=== PATIENT | male | born 2000 | race Caucasian/White ===

== ENCOUNTER 2021-07-21 19:25 | Emergency (ER) | payer OTHER, SELFPAY ==
--- NOTE | ~2021-07-21 | CT_ITS ---
EXAMINATION: CT brain wo con INDICATION: Head injury COMPARISON: None TECHNIQUE: Standard unenhanced head CT. The dose-length product (DLP) was 605.33 mGy-cm. The mA was a djusted according to patient size. Iterative reconstruction technique was employed. FINDINGS: There is no intracranial hemorrhage, acute infarction, or abnormal mass lesion. The ventric les are normal. There is no abnormal mass effect or midline shift. The gallagher-white matter differentiat ion is normal. The basal cisterns are patent. The orbits are normal. The paranasal sinuses, mastoids and calvarium are normal. IMPRESSION: 1. No acute intracranial abnormality. Reviewed, dictated and finalized at location F.
[2021-07-21 19:50] VITALS: BP 122/65; PULSE 64; RESP 18; TEMP 36.6; O2SAT 100
--- NOTE | 2021-07-21 20:27 | ED.HEATRA ---
HPI - Head Injury General Chief complaint: Head Injury Stated complaint: head injury Time Seen by Provider: 07/21/21 20:00 Source: patient Mode of arrival: ambulatory Limitations: no limitations History of Present Illness HPI Narrative: 20-year-old otherwise healthy here with complaints of head injury. Patient states he was at work and was lifting a box and accidentally hit a cross beam. He denies loss of consciousness but complains of headache, blurred vision Complaint: head injury Onset (ago): hour(s) (3) Place: work Loss of Consciousness: no Location of injury: occipital Severity: moderate Quality: dull Radiation: none Other Injuries: none Related Data Home Medications Medication Instructions Recorded Confirmed No Home Medications 07/21/21 07/21/21 Allergies Allergy/AdvReac Type Severity Reaction Status Date / Time No Known Allergies Allergy Verified 07/21/21 20:11 Review of Systems Review of Systems: All systems reviewed & are unremarkable except as noted in HPI and below Constitutional: Constitutional: Reports no additional constitutional complaints Eyes: Eyes: Reports no additional eye complaints ENT: Reports system reviewed and no additional complaints, except as documented Cardiovascular: Cardiovascular: Reports no additional cardiovascular complaints Respiratory: Respiratory: Reports no additional respiratory complaints Gastrointestinal: Gastrointestinal: Reports no additional gastrointestinal complaints Musculoskeletal: Musculoskeletal: Reports no additional musculoskeletal complaints Neurologic: Reports system reviewed and no additional complaints, except as documented Exam Narrative: GENERAL: Well-appearing, well-nourished, and in no acute distress. HEAD: Normocephalic, atraumatic. EYES: PERRLA and EOMI. NECK: Supple. CHEST: Clear to auscultation. No respiratory distress. HEART: Regular rate and rhythm. No murmur heard. Normal peripheral pulses. EXTREMITIES: Normal range of motion. No edema. SKIN: Warm, dry, no rash. NEURO: No focal deficits. Alert and oriented x3. PSYCH: Normal mood and affect. Course Vital Signs Vital signs: Vital Signs Temperature 36.6 C 07/21/21 19:50 Pulse Rate 64 07/21/21 19:50 Respiratory Rate 18 07/21/21 19:50 Blood Pressure 122/65 07/21/21 19:50 Pulse Oximetry 100 07/21/21 19:50 Temperature 36.6 C 07/21/21 19:50 Pulse Rate 64 07/21/21 19:50 Respiratory Rate 18 07/21/21 19:50 Blood Pressure 122/65 07/21/21 19:50 Pulse Oximetry 100 07/21/21 19:50 MDM - Head Injury Imaging Data Radiologist's impression: ITS Impressions Head CT 07/21/21 20:22 IMPRESSION: 1. No acute intracranial abnormality. Discharge Plan Discharge Clinical Impression: Closed head injury Qualifiers: Encounter type: initial encounter Qualified Code(s): S09.90XA - Unspecified injury of head, initial encounter Patient Disposition: Home, Self-Care Condition: Stable Instructions: Head Injury (ED) Additional Instructions: take Tylenol for pain. Prescriptions: No Action No Home Medications RF: 0 Follow-up/Referrals: PHYSICIAN NOT ON STAFF,NONSTAFF [Primary Care Provider] - Soy Field DO [Physician] - Time of Disposition: 20:30
== END 2021-07-21 20:50 | disposition home or self-care (01) ==
PROVIDERS: Emergency Provider Family Medicine
DX: S09.90XA Unspecified injury of head, initial encounter (principal); W22.09XA Striking against other stationary object, initial encounter
CPT/HCPCS: 70450; 99284